=== PATIENT | male | born 1980 | race Caucasian/White ===

== ENCOUNTER 2017-04-21 02:43 | Emergency (ER) | payer MEDICAID ==
[~2017-04-21] VITALS: Ht 167.6 cm; Wt 65.5 kg
[~2017-04-21 02:43] MED LIST: ALPR-624 PO; ANAS1TAB10 PO; BENZ1LOZ30 TOP; CARI350T PO; CLIN-80 PO; CLON-527 PO; CLON-528 PO; ESCI10TA54 PO; HYDR-569 PO; LIDO35.4 TP; ONDA4TAB6 PO; OXCA150T PO; PRAZ2CAP2 PO; QUET50TA PO; SUMA100T16 PO; TEST200V10 IM; TRAM50TA2 PO; ZOLP5TAB8 PO
[2017-04-21 02:49] VITALS: BP 120/90
== END 2017-04-21 03:16 | disposition left against medical advice (07) ==
LOC: ER 02:44
DX: R05 Cough (principal); G43.909 Migraine, unspecified, not intractable, without status migrainosus; J45.909 Unspecified asthma, uncomplicated; K21.9 Gastro-esophageal reflux disease without esophagitis; G89.29 Other chronic pain; F12.10 Cannabis abuse, uncomplicated; F15.10 Other stimulant abuse, uncomplicated; F11.10 Opioid abuse, uncomplicated; F14.10 Cocaine abuse, uncomplicated; F17.210 Nicotine dependence, cigarettes, uncomplicated; Z90.49 Acquired absence of other specified parts of digestive tract; Z88.0 Allergy status to penicillin; Z76.5 Malingerer [conscious simulation]; Z79.899 Other long term (current) drug therapy; Z98.890 Other specified postprocedural states
CPT/HCPCS: 99281

== ENCOUNTER 2017-08-11 22:37 | Emergency (ER) | payer MEDICAID ==
[~2017-08-11] VITALS: Ht 165.1 cm; Wt 61.0 kg
[2017-08-11 22:45] VITALS: BP 127/87
== END 2017-08-11 22:59 | disposition home or self-care (01) ==
LOC: ER 22:37
DX: F41.0 Panic disorder [episodic paroxysmal anxiety] (principal); F31.9 Bipolar disorder, unspecified; G43.909 Migraine, unspecified, not intractable, without status migrainosus; J45.909 Unspecified asthma, uncomplicated; K21.9 Gastro-esophageal reflux disease without esophagitis; G89.29 Other chronic pain; F12.10 Cannabis abuse, uncomplicated; F15.10 Other stimulant abuse, uncomplicated; F14.10 Cocaine abuse, uncomplicated; F11.10 Opioid abuse, uncomplicated; Z86.19 Personal history of other infectious and parasitic diseases; Z86.14 Personal history of Methicillin resistant Staphylococcus aureus infection; Z88.0 Allergy status to penicillin; Z79.899 Other long term (current) drug therapy
CPT/HCPCS: 99284

== ENCOUNTER 2017-09-08 16:57 | Emergency (ER) | payer OTHER, MEDICAID ==
[~2017-09-08] VITALS: Ht 165.1 cm; Wt 68.0 kg
[~2017-09-08 16:57] MED LIST changes: -CLIN-80 PO; +CLIN300C85 PO
[2017-09-08 16:59] VITALS: BP 122/86
[2017-09-08] MEDS ORDERED: HYDROcodone/acetaminophen 10/325mg tab PO ONE (18:30)
[2017-09-08] MEDS ORDERED: HYDR-569 PO (19:53)
[2017-09-08] MEDS ORDERED: CYCL-1 PO (19:53)
[2017-09-08] MEDS ORDERED: ketorolac trometh inj. 60 MG/2 ML VIAL IM ONE (19:55)
[2017-09-08] MEDS ORDERED: ketorolac tromethamine 15mg/ml inj. IM ONE (20:00)
== END 2017-09-08 20:35 | disposition home or self-care (01) ==
LOC: ER 16:58
DX: M54.2 Cervicalgia (principal); M54.5 Low back pain; K21.9 Gastro-esophageal reflux disease without esophagitis; G89.29 Other chronic pain; J45.909 Unspecified asthma, uncomplicated; F12.90 Cannabis use, unspecified, uncomplicated; F15.90 Other stimulant use, unspecified, uncomplicated; F14.90 Cocaine use, unspecified, uncomplicated; F11.90 Opioid use, unspecified, uncomplicated; Z98.890 Other specified postprocedural states; Z88.0 Allergy status to penicillin; Z79.899 Other long term (current) drug therapy
CPT/HCPCS: 70450; 72125; 99284

== ENCOUNTER 2017-10-22 16:20 | Emergency (ER) | payer MEDICAID, OTHER ==
[~2017-10-22] VITALS: Ht 165.1 cm; Wt 66.8 kg
[~2017-10-22 16:20] MED LIST changes: +CYCL-1 PO
[2017-10-22 16:50] LABS: BASOPHILS % (AUTO) 0.3 % (0-1); EOSINOPHILS # (AUTO) 0.2 X10'3 (0-0.9); EOSINOPHILS % (AUTO) 2.8 % (0-6); HEMATOCRIT 49.5 % (42.0-52.0); HEMOGLOBIN 16.3 g/dl (14.0-17.9); LYMPHOCYTES # (AUTO) 2.3 X10'3 (1.1-4.8); MEAN CORPUSCULAR HEMOGLOBIN 29.6 PG (27.0-31.0); MEAN CORPUSCULAR HGB CONC 32.9 % (33.0-36.5); MEAN CORPUSCULAR VOLUME 90.1 FL (78-98); MEAN PLATELET VOLUME 8.1 FL (7.4-10.4); MONOCYTES # (AUTO) 0.4 X10'3 (0-0.9); MONOCYTES % (AUTO) 5.3 % (2-12); NEUTROPHILS # (AUTO) 5.2 X10'3 (1.8-7.7); NEUTROPHILS % (AUTO) 63.6 % (42-75); PLATELET COUNT 298 X10'3 (140-440); RED CELL DISTRIBUTION WIDTH 13.9 % (11.5-14.5); WHITE BLOOD COUNT 8.1 X10'3 (4.5-11.0)
[2017-10-22 17:07] LABS: ALANINE AMINOTRANSFERASE 26 U/L (12-78); ALBUMIN 3.5 G/DL (3.4-5.0); ALBUMIN/GLOBULIN RATIO 0.8 (1.1-1.5); ALKALINE PHOSPHATASE 131 IU/L (46-116); ANION GAP 7 (8-16); ASPARTATE AMINO TRANSFERASE 35 U/L (10-37); BILIRUBIN,TOTAL 0.3 MG/DL (0.1-1.0); BLOOD UREA NITROGEN 10 MG/DL (7-18); BUN/CREATININE RATIO 9.6 (5.4-32.0); CALCIUM 8.5 MG/DL (8.5-10.1); CHLORIDE 101 MMOL/L (99-107); CREATININE 1.04 MG/DL (0.60-1.10); GLUCOSE 87 MG/DL (70-104); SODIUM 138 MMOL/L (135-145); TOTAL CARBON DIOXIDE 30.3 MMOL/L (24-32); TOTAL PROTEIN 7.8 G/DL (6.4-8.2); eGFR 81 ML/MIN
[2017-10-22] MEDS ORDERED: ondansetron 4mg rapidly disintigrating tab PO ONE (17:35)
[2017-10-22 17:50] LABS: CLARITY,URINE SLIGHTLY CLOUDY (Clear); COLOR,URINE YELLOW (Yellow); GLUCOSE, URINE NEGATIVE (Neg); KETONES,URINE TRACE mg/dl (Neg); LEUKOCYTE ESTERASE ,URINE NEGATIVE (Neg); NITRITES, URINE NEGATIVE (Neg); OCCULT BLOOD,URINE NEGATIVE (Neg); PH,URINE 5.5 (4.8-8.0); PROTEIN,URINE NEGATIVE (Neg); UROBILINOGEN,URINE 0.2 E.U/dL (0.2-1.0)
[2017-10-22] MEDS ORDERED: ONDA4TAB9 SL (17:58)
[2017-10-22] MEDS ORDERED: POLY17PO10 PO (17:58)
[2017-10-22 17:59] LABS: UA COLLECTION TYPE VOIDED
[2017-10-22] MEDS ORDERED: methylnaltrexone br 12mg/0.6ml inj***SubQ only SQ ONE (18:00)
[2017-10-22 18:01] LABS: BACTERIA,URINE 2+ /HPF (Neg); MUCUS STRANDS MANY /LPF (Neg); RBC,URINE NONE SEEN /HPF (0-2); SQUAMOUS EPITHELIAL CELL,UR FEW /LPF (FEW)
[2017-10-22 18:03] LABS: TRANSITIONAL EPI CELLS,URINE FEW /HPF; WBC CLUMPS,URINE FEW /HPF (NEGATIVE)
[2017-10-22 18:21] VITALS: BP 128/65
== END 2017-10-22 18:22 | disposition home or self-care (01) ==
LOC: ER 16:22
DX: K59.03 Drug induced constipation (principal); T40.3X5A Adverse effect of methadone, initial encounter; G43.909 Migraine, unspecified, not intractable, without status migrainosus; K21.9 Gastro-esophageal reflux disease without esophagitis; F31.9 Bipolar disorder, unspecified; F12.90 Cannabis use, unspecified, uncomplicated; F15.90 Other stimulant use, unspecified, uncomplicated; F14.90 Cocaine use, unspecified, uncomplicated; F11.90 Opioid use, unspecified, uncomplicated; Z88.0 Allergy status to penicillin; Z79.899 Other long term (current) drug therapy; Z79.2 Long term (current) use of antibiotics; Z90.89 Acquired absence of other organs; Y92.89 Other specified places as the place of occurrence of the external cause
CPT/HCPCS: 36415; 74018; 80053; 81001; 85025; 85610; 87077; 87088; 87186; 93005; 96372; 99285; J2212

== ENCOUNTER 2018-02-05 14:37 | Inpatient (IN) | payer MEDICAID ==
[~2018-02-05] VITALS: Ht 170.2 cm; Wt 78.5 kg
[~2018-02-05 14:37] MED LIST changes: -ALPR-624 PO; -ANAS1TAB10 PO; -BENZ1LOZ30 TOP; -CARI350T PO; -CLIN300C85 PO; -CLON-528 PO; -CYCL-1 PO; -ESCI10TA54 PO; +GABA-534 PO; -HYDR-569 PO; -LIDO35.4 TP; +METH-603 PO; -ONDA4TAB6 PO; -OXCA150T PO; -PRAZ2CAP2 PO; -QUET50TA PO; -SUMA100T16 PO; -TEST200V10 IM; -TRAM50TA2 PO
[2018-02-05 20:00] VITALS: BP 109/64
[2018-02-05] MEDS: clonazePAM 1mg tablet PO SCH (21:07)
[2018-02-05] MEDS: zolpidem 5mg tablet PO PRN (21:54)
[2018-02-05] MEDS: acetaminophen 325mg tablet PO PRN (21:55)
[2018-02-06] MEDS: nicotine 21mg patch - 24 hr TD SCH (07:24)
[2018-02-06] MEDS: clonazePAM 1mg tablet PO SCH ×4 (07:25→20:00)
[2018-02-06] MEDS: gabapentin 400mg capsule PO SCH (07:25)
[2018-02-06] MEDS: methadone 5mg tablet PO SCH ×2 (07:25→21:08)
[2018-02-06] MEDS ORDERED: methadone 10mg tablet PO SCH (08:00)
[2018-02-06 08:23] VITALS: BP 107/71
[2018-02-06] MEDS ORDERED: clonazePAM 1mg tablet PO ONE (11:15)
[2018-02-06] MEDS ORDERED: methadone 5mg tablet PO ONE (11:30)
[2018-02-06] MEDS ORDERED: gabapentin 400mg capsule PO SCH (12:00)
[2018-02-06] MEDS ORDERED: dextroamphetam/amphetam ER cap 15 MG CAP.ER.24H PO SCH (12:00)
[2018-02-06] MEDS ORDERED: magnesium citrate 296ml oral solution PO ONE (12:00)
[2018-02-06] MEDS: docusate sod 100mg capsule PO SCH (20:00)
[2018-02-06 20:49] VITALS: BP 106/65
[2018-02-06] MEDS: zolpidem 5mg tablet PO PRN (21:07)
[2018-02-06] MEDS: ALPRAZolam 0.5mg tablet PO SCH (21:11)
[2018-02-07] MEDS: ALPRAZolam 0.5mg tablet PO SCH (07:20)
[2018-02-07] MEDS: methadone 10mg tablet PO SCH (07:22)
[2018-02-07] MEDS: docusate sod 100mg capsule PO SCH ×2 (08:00→20:11)
[2018-02-07] MEDS: nicotine 21mg patch - 24 hr TD SCH (08:46)
[2018-02-07] MEDS: duloxetine 20mg capsule.DR PO SCH (08:47)
[2018-02-07] MEDS: gabapentin 400mg capsule PO SCH (08:47)
[2018-02-07 08:54] VITALS: BP 111/66
[2018-02-07] MEDS ORDERED: dextroamphetamine/amphetamine 5mg tablet PO PRN ×3 (11:45→14:50)
[2018-02-07] MEDS ORDERED: dextroamphetamine/amphetamine 5mg tablet PO ONE (11:45)
[2018-02-07] MEDS: ALPRAZolam 0.5mg tablet PO PRN (12:20)
[2018-02-07] MEDS ORDERED: loperamide 2mg capsule PO ONE (13:45)
[2018-02-07] MEDS ORDERED: dextroamphetamine/amphetamine 10mg tablet PO PRN (14:27)
[2018-02-07 19:00] VITALS: BP 116/71
[2018-02-07] MEDS: zolpidem 5mg tablet PO PRN (20:24)
[2018-02-07 20:49] LABS: CLARITY,URINE CLEAR (Clear); COLOR,URINE YELLOW (Yellow); GLUCOSE, URINE NEGATIVE (Neg); KETONES,URINE NEGATIVE (Neg); LEUKOCYTE ESTERASE ,URINE NEGATIVE (Neg); NITRITES, URINE NEGATIVE (Neg); OCCULT BLOOD,URINE NEGATIVE (Neg); PROTEIN,URINE NEGATIVE (Neg); UA COLLECTION TYPE NON-SPECIFIED; UROBILINOGEN,URINE 0.2 E.U/dL (0.2-1.0)
[2018-02-08 08:00] VITALS: BP 112/72
[2018-02-08] MEDS ORDERED: dextroamphetamine/amphetamine 5mg tablet PO SCH (08:00)
[2018-02-08] MEDS: docusate sod 100mg capsule PO SCH ×2 (08:00→20:06)
[2018-02-08] MEDS ORDERED: ALPRAZolam 0.5mg tablet PO SCH (08:00)
[2018-02-08] MEDS: duloxetine 20mg capsule.DR PO SCH (08:01)
[2018-02-08] MEDS: methadone 10mg tablet PO SCH (08:01)
[2018-02-08] MEDS: gabapentin 400mg capsule PO SCH (08:01)
[2018-02-08] MEDS: nicotine 21mg patch - 24 hr TD SCH (08:07)
[2018-02-08] MEDS: ALPRAZolam 0.5mg tablet PO PRN ×2 (13:49→20:23)
[2018-02-08] MEDS ORDERED: chlorproMAZINE 25mg tablet PO PRN (15:25)
[2018-02-08 19:00] VITALS: BP 121/76
[2018-02-08] MEDS: lubiprostone 24mcg capsule PO SCH (20:05)
[2018-02-09] MEDS: dextroamphetamine/amphetamine 5mg tablet PO SCH (07:08)
[2018-02-09] MEDS: docusate sod 100mg capsule PO SCH ×2 (07:09→20:15)
[2018-02-09] MEDS: gabapentin 400mg capsule PO SCH (07:09)
[2018-02-09] MEDS: duloxetine 20mg capsule.DR PO SCH (07:09)
[2018-02-09] MEDS: lubiprostone 24mcg capsule PO SCH ×2 (07:10→20:15)
[2018-02-09] MEDS: methadone 10mg tablet PO SCH (07:12)
[2018-02-09] MEDS: nicotine 21mg patch - 24 hr TD SCH (07:14)
[2018-02-09 08:00] VITALS: BP 136/81
[2018-02-09] MEDS ORDERED: dextroamphetamine/amphetamine 5mg tablet PO PRN (08:00)
[2018-02-09] MEDS ORDERED: ALPRAZolam 0.5mg tablet PO PRN (08:00)
[2018-02-09] MEDS: ALPRAZolam 0.5mg tablet PO PRN ×2 (10:22→15:36)
[2018-02-09] MEDS ORDERED: ondansetron 4mg rapidly disintigrating tab PO PRN (11:30)
[2018-02-09 19:00] VITALS: BP 114/80
[2018-02-09] MEDS: benztropine 1mg tablet PO SCH (20:15)
[2018-02-09] MEDS ORDERED: chlorproMAZINE 25mg tablet PO SCH (21:00)
[2018-02-09] MEDS: ondansetron 4mg rapidly disintigrating tab PO PRN (21:22)
[2018-02-10] MEDS: chlorproMAZINE 25mg tablet PO SCH ×2 (00:55→21:09)
[2018-02-10 08:00] VITALS: BP 94/53
[2018-02-10] MEDS: lubiprostone 24mcg capsule PO SCH ×2 (08:08→20:23)
[2018-02-10] MEDS: methadone 10mg tablet PO SCH (08:08)
[2018-02-10] MEDS: docusate sod 100mg capsule PO SCH ×2 (08:08→20:23)
[2018-02-10] MEDS: duloxetine 20mg capsule.DR PO SCH (08:08)
[2018-02-10] MEDS: gabapentin 400mg capsule PO SCH (08:09)
[2018-02-10] MEDS: dextroamphetamine/amphetamine 5mg tablet PO SCH (08:09)
[2018-02-10] MEDS: nicotine 21mg patch - 24 hr TD SCH (08:14)
[2018-02-10] MEDS: ALPRAZolam 0.5mg tablet PO PRN ×2 (13:15→18:14)
[2018-02-10 19:55] VITALS: BP 125/79
[2018-02-10] MEDS: benztropine 1mg tablet PO SCH (21:10)
[2018-02-11] MEDS: benztropine 1mg tablet PO PRN (00:49)
[2018-02-11] MEDS: methadone 10mg tablet PO SCH (07:50)
[2018-02-11] MEDS: gabapentin 400mg capsule PO SCH (07:50)
[2018-02-11] MEDS: duloxetine 20mg capsule.DR PO SCH (07:50)
[2018-02-11] MEDS: docusate sod 100mg capsule PO SCH ×2 (07:50→21:11)
[2018-02-11] MEDS: lubiprostone 24mcg capsule PO SCH ×2 (07:50→21:11)
[2018-02-11] MEDS: dextroamphetamine/amphetamine 5mg tablet PO SCH (07:51)
[2018-02-11] MEDS: nicotine 21mg patch - 24 hr TD SCH (07:58)
[2018-02-11 08:00] VITALS: BP 105/66
[2018-02-11] MEDS: ALPRAZolam 0.5mg tablet PO PRN ×2 (12:28→18:45)
[2018-02-11] MEDS ORDERED: dextroamphetamine/amphetamine 5mg tablet PO PRN (19:50)
[2018-02-11 19:57] VITALS: BP 135/86
[2018-02-11] MEDS: benztropine 1mg tablet PO SCH (21:11)
[2018-02-11] MEDS: chlorproMAZINE 25mg tablet PO SCH (21:11)
[2018-02-12] MEDS: nicotine 21mg patch - 24 hr TD SCH (07:09)
[2018-02-12] MEDS: lubiprostone 24mcg capsule PO SCH ×2 (07:10→20:28)
[2018-02-12] MEDS: gabapentin 400mg capsule PO SCH (07:11)
[2018-02-12] MEDS: docusate sod 100mg capsule PO SCH ×2 (07:12→20:28)
[2018-02-12] MEDS: methadone 10mg tablet PO SCH (07:13)
[2018-02-12] MEDS: duloxetine 20mg capsule.DR PO SCH (07:21)
[2018-02-12 08:00] VITALS: BP 129/74
[2018-02-12] MEDS ORDERED: dextroamphetamine/amphetamine 5mg tablet PO SCH (08:00)
[2018-02-12] MEDS: ALPRAZolam 0.5mg tablet PO PRN ×2 (11:48→17:06)
[2018-02-12] MEDS ORDERED: olanzapine 10mg tablet PO PRN (17:55)
[2018-02-12] MEDS: acetaminophen 325mg tablet PO PRN (19:44)
[2018-02-12 20:00] VITALS: BP 112/75
[2018-02-12] MEDS ORDERED: olanzapine 10mg tablet PO SCH (21:00)
[2018-02-13 08:00] VITALS: BP 109/74
[2018-02-13] MEDS ORDERED: ALPRAZolam 0.5mg tablet PO PRN (08:00)
[2018-02-13] MEDS: lubiprostone 24mcg capsule PO SCH ×2 (08:10→20:08)
[2018-02-13] MEDS: docusate sod 100mg capsule PO SCH ×2 (08:10→20:08)
[2018-02-13] MEDS: gabapentin 400mg capsule PO SCH (08:11)
[2018-02-13] MEDS: duloxetine 20mg capsule.DR PO SCH (08:11)
[2018-02-13] MEDS: dextroamphetamine/amphetamine 5mg tablet PO SCH (08:11)
[2018-02-13] MEDS: methadone 10mg tablet PO SCH (08:14)
[2018-02-13] MEDS: nicotine 21mg patch - 24 hr TD SCH (08:20)
[2018-02-13] MEDS ORDERED: ALPRAZolam 0.5mg tablet PO ONE (17:15)
[2018-02-13] MEDS ORDERED: magnesium hydroxide 30ml (MOM) UD suspension PO PRN (19:40)
[2018-02-13] MEDS: OLANZapine 5mg rapidly disint. tablet PO SCH (20:09)
[2018-02-13 20:15] VITALS: BP 111/75
[2018-02-14] MEDS: OLANZapine 5mg rapidly disint. tablet PO PRN (00:12)
[2018-02-14 08:22] VITALS: BP 119/79
[2018-02-14] MEDS: lubiprostone 24mcg capsule PO SCH ×2 (08:25→20:31)
[2018-02-14] MEDS: docusate sod 100mg capsule PO SCH ×2 (08:25→20:31)
[2018-02-14] MEDS: dextroamphetamine/amphetamine 5mg tablet PO SCH (08:25)
[2018-02-14] MEDS: duloxetine 20mg capsule.DR PO SCH (08:25)
[2018-02-14] MEDS: nicotine 21mg patch - 24 hr TD SCH (08:25)
[2018-02-14] MEDS: gabapentin 400mg capsule PO SCH (08:26)
[2018-02-14] MEDS: methadone 10mg tablet PO SCH (08:31)
[2018-02-14] MEDS ORDERED: magnesium citrate 296ml oral solution PO ONE ×2 (09:35→20:00)
[2018-02-14] MEDS: ALPRAZolam 0.5mg tablet PO PRN ×2 (12:17→16:49)
[2018-02-14 19:00] VITALS: BP 138/85
[2018-02-14] MEDS: OLANZapine 5mg rapidly disint. tablet PO SCH (20:31)
[2018-02-15 08:00] VITALS: BP 110/79
[2018-02-15] MEDS: nicotine 21mg patch - 24 hr TD SCH (08:00)
[2018-02-15] MEDS: lubiprostone 24mcg capsule PO SCH ×2 (08:12→20:09)
[2018-02-15] MEDS: gabapentin 400mg capsule PO SCH (08:13)
[2018-02-15] MEDS: dextroamphetamine/amphetamine 5mg tablet PO SCH (08:13)
[2018-02-15] MEDS: docusate sod 100mg capsule PO SCH ×2 (08:13→20:09)
[2018-02-15] MEDS: duloxetine 20mg capsule.DR PO SCH (08:13)
[2018-02-15] MEDS: methadone 10mg tablet PO SCH (08:18)
[2018-02-15] MEDS ORDERED: TESTOSTERONE CYPIONATE 200 MG/ML VIAL IM ONE (10:00)
[2018-02-15] MEDS: ALPRAZolam 0.5mg tablet PO PRN ×2 (12:45→17:03)
[2018-02-15 19:00] VITALS: BP 136/89
[2018-02-15] MEDS: OLANZapine 5mg rapidly disint. tablet PO SCH (20:08)
[2018-02-15] MEDS: divalproex sod 125mg tablet.DR PO SCH (20:09)
[2018-02-15] MEDS: benztropine 1mg tablet PO PRN (20:58)
[2018-02-15] MEDS ORDERED: SUMAtriptan 25 MG tablet PO ONE (22:35)
[2018-02-16] MEDS: dextroamphetamine/amphetamine 5mg tablet PO SCH (07:43)
[2018-02-16] MEDS: docusate sod 100mg capsule PO SCH ×2 (07:43→20:28)
[2018-02-16] MEDS: methadone 10mg tablet PO SCH (07:43)
[2018-02-16] MEDS: duloxetine 20mg capsule.DR PO SCH (07:43)
[2018-02-16] MEDS: gabapentin 400mg capsule PO SCH (07:43)
[2018-02-16] MEDS: divalproex sod 125mg tablet.DR PO SCH (07:44)
[2018-02-16] MEDS: nicotine 21mg patch - 24 hr TD SCH (07:49)
[2018-02-16 08:00] VITALS: BP 137/89
[2018-02-16] MEDS: lubiprostone 24mcg capsule PO SCH ×2 (08:21→20:28)
[2018-02-16] MEDS: acetaminophen 325mg tablet PO PRN (10:46)
[2018-02-16] MEDS: ALPRAZolam 0.5mg tablet PO PRN ×2 (10:47→16:12)
[2018-02-16 19:00] VITALS: BP 125/90
[2018-02-16 19:47] LABS: COLOR,URINE YELLOW (Yellow); GLUCOSE, URINE NEGATIVE (Neg); KETONES,URINE NEGATIVE (Neg); LEUKOCYTE ESTERASE ,URINE NEGATIVE (Neg); NITRITES, URINE NEGATIVE (Neg); OCCULT BLOOD,URINE NEGATIVE (Neg); PROTEIN,URINE NEGATIVE (Neg); UROBILINOGEN,URINE 0.2 E.U/dL (0.2-1.0)
[2018-02-16 19:52] LABS: CLARITY,URINE SLIGHTLY CLOUDY (Clear); UA COLLECTION TYPE NON-SPECIFIED
[2018-02-16 20:00] LABS: BACTERIA,URINE NONE SEEN /HPF (Neg); MUCUS STRANDS FEW /LPF (Neg); RBC,URINE NONE SEEN /HPF (0-2); SQUAMOUS EPITHELIAL CELL,UR FEW /LPF (FEW); WBC,URINE 0-4 /HPF (0-4)
[2018-02-16 20:01] LABS: AMORPHOUS PHOSPHATES 1+
[2018-02-16] MEDS: OLANZapine 5mg rapidly disint. tablet PO SCH (20:28)
[2018-02-16] MEDS: divalproex sodium 250mg tablet PO SCH (21:04)
[2018-02-16] MEDS: ondansetron 4mg rapidly disintigrating tab PO PRN (21:34)
[2018-02-17] MEDS: OLANZapine 5mg rapidly disint. tablet PO PRN (03:37)
[2018-02-17] MEDS: methadone 10mg tablet PO SCH (07:36)
[2018-02-17] MEDS: docusate sod 100mg capsule PO SCH ×2 (07:41→20:02)
[2018-02-17] MEDS: divalproex sod 125mg tablet.DR PO SCH (07:45)
[2018-02-17] MEDS: dextroamphetamine/amphetamine 5mg tablet PO SCH (07:46)
[2018-02-17] MEDS: gabapentin 400mg capsule PO SCH (07:46)
[2018-02-17] MEDS: duloxetine 20mg capsule.DR PO SCH (07:47)
[2018-02-17] MEDS: lubiprostone 24mcg capsule PO SCH ×2 (07:47→20:02)
[2018-02-17] MEDS: nicotine 21mg patch - 24 hr TD SCH (07:48)
[2018-02-17 08:00] VITALS: BP 107/56
[2018-02-17] MEDS: ALPRAZolam 0.5mg tablet PO PRN ×2 (13:31→20:04)
[2018-02-17 19:00] VITALS: BP 126/86
[2018-02-17] MEDS: divalproex sodium 250mg tablet PO SCH (20:03)
[2018-02-17] MEDS: OLANZapine 5mg rapidly disint. tablet PO SCH ×2 (20:03→21:00)
[2018-02-18] MEDS: ALPRAZolam 0.5mg tablet PO PRN ×2 (03:26→11:00)
[2018-02-18 07:42] VITALS: BP 94/67
[2018-02-18] MEDS: nicotine 21mg patch - 24 hr TD SCH (08:00)
[2018-02-18] MEDS: divalproex sod 125mg tablet.DR PO SCH (08:22)
[2018-02-18] MEDS: dextroamphetamine/amphetamine 5mg tablet PO SCH (08:22)
[2018-02-18] MEDS: duloxetine 20mg capsule.DR PO SCH (08:23)
[2018-02-18] MEDS: methadone 10mg tablet PO SCH (08:29)
[2018-02-18] MEDS: docusate sod 100mg capsule PO SCH ×2 (08:29→20:14)
[2018-02-18] MEDS: gabapentin 400mg capsule PO SCH (08:29)
[2018-02-18] MEDS: lubiprostone 24mcg capsule PO SCH ×2 (08:35→20:14)
[2018-02-18 19:57] VITALS: BP 123/76
[2018-02-18] MEDS: divalproex sodium 250mg tablet PO SCH (20:15)
[2018-02-18] MEDS: ibuprofen 200mg tablet PO PRN (20:15)
[2018-02-18] MEDS: OLANZapine 5mg rapidly disint. tablet PO SCH (20:16)
[2018-02-19] MEDS: ALPRAZolam 0.5mg tablet PO PRN ×3 (01:43→20:10)
[2018-02-19] MEDS ORDERED: traZODone 50mg tablet PO ONE (04:15)
[2018-02-19] MEDS ORDERED: zolpidem 5mg tablet PO ONE (04:15)
[2018-02-19] MEDS ORDERED: ALPRAZolam 0.25mg tablet PO PRN (06:36)
[2018-02-19] MEDS: methadone 10mg tablet PO SCH (07:04)
[2018-02-19] MEDS: docusate sod 100mg capsule PO SCH ×2 (07:04→20:11)
[2018-02-19] MEDS: gabapentin 400mg capsule PO SCH (07:04)
[2018-02-19] MEDS: divalproex sod 125mg tablet.DR PO SCH (07:05)
[2018-02-19] MEDS: benztropine 1mg tablet PO PRN (07:05)
[2018-02-19] MEDS: dextroamphetamine/amphetamine 5mg tablet PO SCH (07:05)
[2018-02-19] MEDS: lubiprostone 24mcg capsule PO SCH ×2 (07:05→20:11)
[2018-02-19] MEDS: duloxetine 20mg capsule.DR PO SCH (07:06)
[2018-02-19 08:00] VITALS: BP 102/86
[2018-02-19] MEDS: nicotine 21mg patch - 24 hr TD SCH (08:00)
[2018-02-19] MEDS: ondansetron 4mg rapidly disintigrating tab PO PRN (14:39)
[2018-02-19 19:00] VITALS: BP 136/86
[2018-02-19] MEDS ORDERED: OLANZapine 5mg rapidly disint. tablet PO PRN (19:55)
[2018-02-19] MEDS: divalproex sodium 250mg tablet PO SCH (20:11)
[2018-02-19] MEDS: OLANZapine 2.5MG tablet PO SCH (20:11)
[2018-02-19] MEDS ORDERED: OLANZapine 2.5MG tablet PO SCH (21:00)
[2018-02-20 07:25] VITALS: BP 112/78
[2018-02-20] MEDS: nicotine 21mg patch - 24 hr TD SCH ×2 (08:00→08:17)
[2018-02-20] MEDS: ALPRAZolam 0.5mg tablet PO PRN ×2 (08:01→14:23)
[2018-02-20] MEDS: duloxetine 20mg capsule.DR PO SCH (08:02)
[2018-02-20] MEDS: docusate sod 100mg capsule PO SCH ×2 (08:02→20:35)
[2018-02-20] MEDS: methadone 5mg tablet PO SCH (08:02)
[2018-02-20] MEDS: gabapentin 400mg capsule PO SCH (08:02)
[2018-02-20] MEDS: methadone 10mg tablet PO SCH (08:02)
[2018-02-20] MEDS: divalproex sod 125mg tablet.DR PO SCH (08:03)
[2018-02-20] MEDS: lubiprostone 24mcg capsule PO SCH ×2 (08:04→20:34)
[2018-02-20] MEDS: dextroamphetamine/amphetamine 5mg tablet PO SCH (08:04)
[2018-02-20] MEDS: ibuprofen 200mg tablet PO PRN (12:25)
[2018-02-20 20:00] VITALS: BP 138/78
[2018-02-20] MEDS: divalproex sodium 250mg tablet PO SCH (20:34)
[2018-02-20] MEDS: OLANZapine 2.5MG tablet PO SCH (20:35)
[2018-02-21 08:00] VITALS: BP 122/70
[2018-02-21] MEDS: duloxetine 20mg capsule.DR PO SCH (08:03)
[2018-02-21] MEDS: lubiprostone 24mcg capsule PO SCH ×2 (08:03→20:28)
[2018-02-21] MEDS: methadone 10mg tablet PO SCH (08:03)
[2018-02-21] MEDS: docusate sod 100mg capsule PO SCH ×2 (08:03→20:27)
[2018-02-21] MEDS: nicotine 21mg patch - 24 hr TD SCH (08:04)
[2018-02-21] MEDS: divalproex sod 125mg tablet.DR PO SCH (08:04)
[2018-02-21] MEDS: dextroamphetamine/amphetamine 5mg tablet PO SCH (08:04)
[2018-02-21] MEDS: methadone 5mg tablet PO SCH (08:04)
[2018-02-21] MEDS: gabapentin 400mg capsule PO SCH (08:04)
[2018-02-21] MEDS: ALPRAZolam 0.5mg tablet PO PRN ×2 (10:45→14:56)
[2018-02-21] MEDS ORDERED: ALPR2TAB75 PO (19:33)
[2018-02-21] MEDS ORDERED: CARI-1 PO (19:33)
[2018-02-21] MEDS ORDERED: MAGN296S50 PO (19:33)
[2018-02-21] MEDS ORDERED: DIVA-52 PO (19:33)
[2018-02-21] MEDS ORDERED: NICO-687 TD (19:33)
[2018-02-21] MEDS ORDERED: DEXT10TA8 PO (19:33)
[2018-02-21] MEDS ORDERED: METH5TAB PO (19:33)
[2018-02-21] MEDS ORDERED: OLAN5TAB26 PO (19:33)
[2018-02-21] MEDS ORDERED: DOL10T PO (19:33)
[2018-02-21] MEDS ORDERED: DIVA-74 PO (19:33)
[2018-02-21 20:00] VITALS: BP 136/70
[2018-02-21] MEDS ORDERED: OLANZapine 2.5MG tablet PO SCH (20:00)
[2018-02-21] MEDS ORDERED: DULO20CA17 PO (20:26)
[2018-02-21] MEDS: divalproex sodium 250mg tablet PO SCH (20:29)
[2018-02-22] MEDS ORDERED: METH-603 PO (12:27)
[2018-02-22] MEDS ORDERED: AMPH10CA3 PO (12:27)
[2018-02-22] MEDS ORDERED: TESTOSTERONE CYPIONATE 200 MG/ML VIAL IM ONE ×2 (15:00)
== END 2018-02-21 22:00 | disposition left against medical advice (07) | DRG 751 ==
LOC: ADULT MH 14:37
PROVIDERS: ADMIT Psychiatry & Neurology Psychiatry; ATTEND Psychiatry & Neurology Psychiatry
DX: F33.2 Major depressive disorder, recurrent severe without psychotic features (principal); F11.20 Opioid dependence, uncomplicated; R45.851 Suicidal ideations; F15.10 Other stimulant abuse, uncomplicated; M50.30 Other cervical disc degeneration, unspecified cervical region; F19.94 Other psychoactive substance use, unspecified with psychoactive substance-induced mood disorder; F60.89 Other specific personality disorders; F17.210 Nicotine dependence, cigarettes, uncomplicated; Z53.21 Procedure and treatment not carried out due to patient leaving prior to being seen by health care provider; G43.909 Migraine, unspecified, not intractable, without status migrainosus; F12.10 Cannabis abuse, uncomplicated; F64.0 Transsexualism; F90.1 Attention-deficit hyperactivity disorder, predominantly hyperactive type; G89.29 Other chronic pain; Z88.0 Allergy status to penicillin; Z90.49 Acquired absence of other specified parts of digestive tract; Z79.899 Other long term (current) drug therapy; Z28.21 Immunization not carried out because of patient refusal; Z88.5 Allergy status to narcotic agent; Z81.8 Family history of other mental and behavioral disorders; Z71.6 Tobacco abuse counseling; Z71.51 Drug abuse counseling and surveillance of drug abuser
CPT/HCPCS: 81001; 81003; 87070; J3490; Q0161; Q2037; X5620

== ENCOUNTER 2018-05-16 15:40 | Emergency (ER) | payer MEDICAID ==
[~2018-05-16] VITALS: Ht 162.6 cm; Wt 72.0 kg
[~2018-05-16 15:40] MED LIST changes: +AMPH10CA3 PO; +CARI-1 PO; -CLON-527 PO; +DIVA-52 PO; +DIVA-74 PO; +DULO20CA17 PO; -GABA-534 PO; +MAGN296S50 PO; -METH-603 PO; +NICO-687 TD; +OLAN5TAB26 PO; -ZOLP5TAB8 PO
[2018-05-16 16:17] VITALS: BP 147/94
[2018-05-16 16:55] LABS: BASOPHILS % (AUTO) 0.1 % (0-1); EOSINOPHILS # (AUTO) 0.3 X10'3 (0-0.9); EOSINOPHILS % (AUTO) 2.5 % (0-6); HEMATOCRIT 53.7 % (42.0-52.0); HEMOGLOBIN 17.9 g/dl (14.0-17.9); LYMPHOCYTES # (AUTO) 1.6 X10'3 (1.1-4.8); LYMPHOCYTES % (AUTO) 14.8 % (21-51); MEAN CORPUSCULAR HEMOGLOBIN 29.7 PG (27.0-31.0); MEAN CORPUSCULAR HGB CONC 33.3 g/dL (33.0-36.5); MEAN CORPUSCULAR VOLUME 89.3 FL (78-98); MEAN PLATELET VOLUME 7.3 FL (7.4-10.4); MONOCYTES % (AUTO) 8.8 % (2-12); NEUTROPHILS # (AUTO) 8.2 X10'3 (1.8-7.7); NEUTROPHILS % (AUTO) 73.8 % (42-75); PLATELET COUNT 363 X10'3 (140-440); RED BLOOD COUNT 6.02 X10'6 (4.70-6.10); RED CELL DISTRIBUTION WIDTH 13.3 % (11.5-14.5); WHITE BLOOD COUNT 11.1 X10'3 (4.5-11.0)
[2018-05-16 17:06] LABS: INR 1.1 INR; PROTHROMBIN TIME 10.7 SECONDS (9.0-12.0)
[2018-05-16 17:10] LABS: ALANINE AMINOTRANSFERASE 28 U/L (12-78); ALBUMIN 4.5 G/DL (3.4-5.0); ALKALINE PHOSPHATASE 95 IU/L (46-116); ANION GAP 11 (8-16); ASPARTATE AMINO TRANSFERASE 54 U/L (10-37); BILIRUBIN,TOTAL 0.9 MG/DL (0.1-1.0); BLOOD UREA NITROGEN 22 MG/DL (7-18); BUN/CREATININE RATIO 17.9 (5.4-32.0); CALCIUM 9.5 MG/DL (8.5-10.1); CHLORIDE 99 MMOL/L (99-107); CREATININE 1.23 MG/DL (0.60-1.10); GLUCOSE 71 MG/DL (70-104); POTASSIUM 4.1 MMOL/L (3.5-5.1); SODIUM 138 MMOL/L (135-145); TOTAL CARBON DIOXIDE 28.3 MMOL/L (24-32); TOTAL PROTEIN 9.2 G/DL (6.4-8.2); eGFR 67 ML/MIN
[2018-05-16 17:16] LABS: CLARITY,URINE CLOUDY (Clear); COLOR,URINE YELLOW (Yellow); GLUCOSE, URINE NEGATIVE (Neg); KETONES,URINE TRACE mg/dl (Neg); LEUKOCYTE ESTERASE ,URINE SMALL (Neg); NITRITES, URINE POSITIVE (Neg); OCCULT BLOOD,URINE NEGATIVE (Neg); PH,URINE 5.5 (4.8-8.0); PROTEIN,URINE TRACE mg/dl (Neg); UROBILINOGEN,URINE 0.2 E.U/dL (0.2-1.0)
[2018-05-16 17:28] LABS: UA COLLECTION TYPE NON-SPECIFIED
[2018-05-16 17:29] LABS: BACTERIA,URINE 2+ /HPF (Neg); MUCUS STRANDS MODERATE /LPF (Neg); SQUAMOUS EPITHELIAL CELL,UR MODERATE /LPF (FEW)
[2018-05-16 17:30] LABS: RBC,URINE 0-2 /HPF (0-2); WBC,URINE 30-50 /HPF (0-4)
[2018-05-16] MEDS ORDERED: ciprofloxacin 250mg tablet PO ONE (20:30)
[2018-05-16] MEDS ORDERED: CIPR-230 PO (20:32)
[2018-05-16] MEDS ORDERED: LORazepam 1 MG tablet PO ONE (20:35)
== END 2018-05-16 20:49 | disposition home or self-care (01) ==
LOC: ER 15:40
DX: N39.0 Urinary tract infection, site not specified (principal); J45.909 Unspecified asthma, uncomplicated; K21.9 Gastro-esophageal reflux disease without esophagitis; G89.29 Other chronic pain; F12.90 Cannabis use, unspecified, uncomplicated; F14.90 Cocaine use, unspecified, uncomplicated; F11.90 Opioid use, unspecified, uncomplicated; Z86.19 Personal history of other infectious and parasitic diseases; Z86.14 Personal history of Methicillin resistant Staphylococcus aureus infection; Z90.49 Acquired absence of other specified parts of digestive tract; Z98.890 Other specified postprocedural states; Z88.0 Allergy status to penicillin; Z79.2 Long term (current) use of antibiotics; Z79.899 Other long term (current) drug therapy
CPT/HCPCS: 36415; 80053; 81001; 85025; 85610; 87077; 87088; 87186; 99283

== ENCOUNTER 2019-01-27 12:30 | Emergency (ER) | payer MEDICAID ==
[~2019-01-27] VITALS: Ht 165.1 cm; Wt 79.9 kg
[~2019-01-27 12:30] MED LIST changes: +BISA-155 PO; -CARI-1 PO; +CARI-433 PO; -DULO20CA17 PO; +DULO20CA18 PO
[2019-01-27] MEDS ORDERED: ketorolac trometh. 30mg/ml inj. IM ONE ×2 (12:35→14:05)
[2019-01-27] MEDS ORDERED: orphenadrine citrate 60mg/2ml inj. IM ONE (14:10)
[2019-01-27] MEDS ORDERED: ORPH100T2 PO (14:17)
[2019-01-27] MEDS ORDERED: KETO10TA2 PO (14:17)
[2019-01-27 14:34] VITALS: BP 158/71
== END 2019-01-27 14:37 | disposition home or self-care (01) ==
LOC: ER 12:30
DX: S16.1XXA Strain of muscle, fascia and tendon at neck level, initial encounter (principal); S29.019A Strain of muscle and tendon of unspecified wall of thorax, initial encounter; S39.012A Strain of muscle, fascia and tendon of lower back, initial encounter; M25.512 Pain in left shoulder; M25.511 Pain in right shoulder; G43.909 Migraine, unspecified, not intractable, without status migrainosus; J45.909 Unspecified asthma, uncomplicated; K21.9 Gastro-esophageal reflux disease without esophagitis; G89.29 Other chronic pain; F41.9 Anxiety disorder, unspecified; F31.9 Bipolar disorder, unspecified; F12.90 Cannabis use, unspecified, uncomplicated; F15.90 Other stimulant use, unspecified, uncomplicated; F11.90 Opioid use, unspecified, uncomplicated; F14.90 Cocaine use, unspecified, uncomplicated; Z86.19 Personal history of other infectious and parasitic diseases; Z90.49 Acquired absence of other specified parts of digestive tract; Z98.890 Other specified postprocedural states; Z88.0 Allergy status to penicillin; Z79.899 Other long term (current) drug therapy; V89.2XXA Person injured in unspecified motor-vehicle accident, traffic, initial encounter; Y93.89 Activity, other specified; Y92.488 Other paved roadways as the place of occurrence of the external cause; Y99.8 Other external cause status
CPT/HCPCS: 96372; 99283; J1885; J2360

== ENCOUNTER 2019-07-18 08:22 | Emergency (ER) | payer MEDICAID ==
[~2019-07-18] VITALS: Ht 167.6 cm; Wt 79.5 kg
[~2019-07-18 08:22] MED LIST changes: +KETO10TA2 PO; -MAGN296S50 PO; +MAGN296S70 PO; +ORPH100T2 PO
[2019-07-18 08:24] VITALS: BP 155/91
== END 2019-07-18 10:08 | disposition home or self-care (01) ==
LOC: ER 08:22
DX: R07.89 Other chest pain (principal); B34.9 Viral infection, unspecified; R51 Headache; K21.9 Gastro-esophageal reflux disease without esophagitis; G89.29 Other chronic pain; J45.909 Unspecified asthma, uncomplicated; F41.9 Anxiety disorder, unspecified; F32.9 Major depressive disorder, single episode, unspecified; Z86.14 Personal history of Methicillin resistant Staphylococcus aureus infection; Z87.440 Personal history of urinary (tract) infections; Z90.89 Acquired absence of other organs; Z88.0 Allergy status to penicillin
CPT/HCPCS: 71045; 99283

== ENCOUNTER 2019-11-19 09:02 | Emergency (ER) | payer MEDICAID ==
[~2019-11-19] VITALS: Ht 170.2 cm; Wt 73.6 kg
[2019-11-19] MEDS ORDERED: LORA-269 PO (09:17)
[2019-11-19] MEDS ORDERED: LORazepam 1 MG tablet PO ONE (09:20)
[2019-11-19 09:28] VITALS: BP 140/96
== END 2019-11-19 09:29 | disposition home or self-care (01) ==
LOC: ER 09:02
DX: F41.9 Anxiety disorder, unspecified (principal); F51.5 Nightmare disorder; G43.909 Migraine, unspecified, not intractable, without status migrainosus; K21.9 Gastro-esophageal reflux disease without esophagitis; J45.909 Unspecified asthma, uncomplicated; G89.29 Other chronic pain; F12.90 Cannabis use, unspecified, uncomplicated; F15.90 Other stimulant use, unspecified, uncomplicated; F14.90 Cocaine use, unspecified, uncomplicated; F11.90 Opioid use, unspecified, uncomplicated; Z86.19 Personal history of other infectious and parasitic diseases; Z90.49 Acquired absence of other specified parts of digestive tract; Z98.890 Other specified postprocedural states; Z88.0 Allergy status to penicillin; Z79.899 Other long term (current) drug therapy
CPT/HCPCS: 99283

== ENCOUNTER 2019-12-02 08:05 | Emergency (ER) | payer MEDICAID ==
[~2019-12-02] VITALS: Ht 167.6 cm; Wt 68.2 kg
[~2019-12-02 08:05] MED LIST changes: +LORA-269 PO
[2019-12-02 08:09] VITALS: BP 124/81
--- NOTE | 2019-12-02 08:34 | NUR ---
PT C/O HEAVINESS IN CHEST ,DIFFICULITY BREATHING ,TEARFUL.DENIES ANY SI.PT SAID HE FEEL BETTER WHILE TALKING.PT SAID I DO NOT WANT TO WORK TODAY WANT TO REST.
--- NOTE | 2019-12-02 09:19 | NUR ---
josé green at bedside talking with the pt.
[2019-12-02] MEDS ORDERED: ALPR1TAB2 PO (09:34)
== END 2019-12-02 09:53 | disposition home or self-care (01) ==
LOC: ER 08:05
DX: F41.9 Anxiety disorder, unspecified (principal); K59.00 Constipation, unspecified; R10.84 Generalized abdominal pain; G43.909 Migraine, unspecified, not intractable, without status migrainosus; J45.909 Unspecified asthma, uncomplicated; G89.29 Other chronic pain; F31.9 Bipolar disorder, unspecified; F12.90 Cannabis use, unspecified, uncomplicated; F15.90 Other stimulant use, unspecified, uncomplicated; F14.90 Cocaine use, unspecified, uncomplicated; F11.90 Opioid use, unspecified, uncomplicated; Z87.440 Personal history of urinary (tract) infections; Z86.19 Personal history of other infectious and parasitic diseases; Z86.14 Personal history of Methicillin resistant Staphylococcus aureus infection; Z98.890 Other specified postprocedural states; Z90.89 Acquired absence of other organs; Z72.89 Other problems related to lifestyle; Z88.0 Allergy status to penicillin; Z79.899 Other long term (current) drug therapy
CPT/HCPCS: 99283

== ENCOUNTER 2020-05-19 18:15 | Emergency (ER) | payer MEDICAID ==
[~2020-05-19] VITALS: Ht 165.1 cm; Wt 72.7 kg
[~2020-05-19 18:15] MED LIST changes: +ALPR1TAB2 PO
[2020-05-19 18:48] VITALS: BP 157/93
[2020-05-19] MEDS ORDERED: PALI3TAB PO (19:14)
[2020-05-19] MEDS ORDERED: CLON-527 PO (19:14)
[2020-05-19] MEDS ORDERED: OLAN5TAB3 PO (19:14)
== END 2020-05-19 19:38 | disposition home or self-care (01) ==
LOC: ER 18:16
DX: Z76.0 Encounter for issue of repeat prescription (principal); G43.909 Migraine, unspecified, not intractable, without status migrainosus; J45.909 Unspecified asthma, uncomplicated; K21.9 Gastro-esophageal reflux disease without esophagitis; G89.29 Other chronic pain; F41.9 Anxiety disorder, unspecified; F31.9 Bipolar disorder, unspecified; F12.90 Cannabis use, unspecified, uncomplicated; F15.90 Other stimulant use, unspecified, uncomplicated; F11.90 Opioid use, unspecified, uncomplicated; F14.90 Cocaine use, unspecified, uncomplicated; Z86.19 Personal history of other infectious and parasitic diseases; Z87.440 Personal history of urinary (tract) infections; Z86.14 Personal history of Methicillin resistant Staphylococcus aureus infection; Z90.89 Acquired absence of other organs; Z98.890 Other specified postprocedural states; Z72.89 Other problems related to lifestyle; Z88.0 Allergy status to penicillin; Z79.899 Other long term (current) drug therapy
CPT/HCPCS: 99283

== ENCOUNTER 2020-08-27 18:12 | Emergency (ER) | payer MEDICAID ==
[~2020-08-27] VITALS: Ht 167.6 cm; Wt 77.3 kg
[~2020-08-27 18:12] MED LIST changes: +CLON-527 PO; +OLAN5TAB3 PO; +PALI3TAB PO
[2020-08-27 18:14] VITALS: BP 138/118
[2020-08-27] MEDS ORDERED: IBUP-1984 PO (21:15)
[2020-08-27] MEDS ORDERED: ketorolac trometh. 30mg/ml inj. IM ONE (21:20)
== END 2020-08-27 21:38 | disposition home or self-care (01) ==
LOC: ER 18:13
DX: M25.561 Pain in right knee (principal); G43.909 Migraine, unspecified, not intractable, without status migrainosus; J45.909 Unspecified asthma, uncomplicated; K21.9 Gastro-esophageal reflux disease without esophagitis; G89.29 Other chronic pain; F41.9 Anxiety disorder, unspecified; F31.9 Bipolar disorder, unspecified; F12.90 Cannabis use, unspecified, uncomplicated; F15.90 Other stimulant use, unspecified, uncomplicated; F14.90 Cocaine use, unspecified, uncomplicated; F11.90 Opioid use, unspecified, uncomplicated; Z87.440 Personal history of urinary (tract) infections; Z86.14 Personal history of Methicillin resistant Staphylococcus aureus infection; Z90.89 Acquired absence of other organs; Z98.890 Other specified postprocedural states; Z72.89 Other problems related to lifestyle; Z88.0 Allergy status to penicillin; Z79.899 Other long term (current) drug therapy
CPT/HCPCS: 29505; 73564; 96372; 99283; J1885

== ENCOUNTER 2020-09-16 07:33 | Emergency (ER) | payer MEDICAID ==
[2020-09-16 07:40] VITALS: BP 133/95
[2020-09-16] MEDS ORDERED: ALPRAZolam 0.5mg tablet PO ONE (08:40)
[2020-09-16] MEDS ORDERED: QUET25TA PO (09:44)
[2020-09-16] MEDS ORDERED: BUSP5TAB3 PO (09:44)
== END 2020-09-16 10:04 | disposition home or self-care (01) ==
LOC: ER 07:33
DX: F41.9 Anxiety disorder, unspecified (principal); R11.0 Nausea; G43.909 Migraine, unspecified, not intractable, without status migrainosus; J45.909 Unspecified asthma, uncomplicated; K21.9 Gastro-esophageal reflux disease without esophagitis; G89.29 Other chronic pain; F31.9 Bipolar disorder, unspecified; F12.90 Cannabis use, unspecified, uncomplicated; F15.90 Other stimulant use, unspecified, uncomplicated; F14.90 Cocaine use, unspecified, uncomplicated; F11.90 Opioid use, unspecified, uncomplicated; Z86.19 Personal history of other infectious and parasitic diseases; Z87.440 Personal history of urinary (tract) infections; Z86.14 Personal history of Methicillin resistant Staphylococcus aureus infection; Z90.89 Acquired absence of other organs; Z98.890 Other specified postprocedural states; Z72.89 Other problems related to lifestyle; Z88.0 Allergy status to penicillin; Z79.899 Other long term (current) drug therapy
CPT/HCPCS: 99283

== ENCOUNTER 2021-04-27 07:52 | Emergency (ER) | payer MEDICAID ==
[~2021-04-27] VITALS: Ht 167.6 cm; Wt 90.9 kg
[~2021-04-27 07:52] MED LIST changes: -OLAN5TAB26 PO; +OLAN5TAB75 PO; +QUET25TA PO
[2021-04-27 08:13] VITALS: BP 168/103
[2021-04-27] MEDS ORDERED: acetaminophen 325mg tablet PO ONE (08:20)
[2021-04-27] MEDS ORDERED: ketorolac tromethamine 15mg/ml inj. IM ONE (08:40)
[2021-04-27 08:48] LABS: BASOPHILS % (AUTO) 0.3 % (0-1); EOSINOPHILS # (AUTO) 0.3 X10'3 (0-0.9); EOSINOPHILS % (AUTO) 2.6 % (0-6); HEMATOCRIT 45.5 % (42.0-52.0); HEMOGLOBIN 15.2 g/dl (14.0-17.9); LYMPHOCYTES # (AUTO) 1.4 X10'3 (1.1-4.8); LYMPHOCYTES % (AUTO) 11.3 % (21-51); MEAN CORPUSCULAR HGB CONC 33.5 g/dL (33.0-36.5); MEAN CORPUSCULAR VOLUME 89.7 FL (78-98); MEAN PLATELET VOLUME 7.9 FL (7.4-10.4); MONOCYTES # (AUTO) 1.1 X10'3 (0-0.9); MONOCYTES % (AUTO) 9.3 % (2-12); NEUTROPHILS # (AUTO) 9.4 X10'3 (1.8-7.7); NEUTROPHILS % (AUTO) 76.5 % (42-75); PLATELET COUNT 311 X10'3 (140-440); RED BLOOD COUNT 5.07 X10'6 (4.70-6.10); RED CELL DISTRIBUTION WIDTH 13.6 % (11.5-14.5); WHITE BLOOD COUNT 12.3 X10'3 (4.5-11.0)
[2021-04-27 09:11] LABS: ALANINE AMINOTRANSFERASE 100 U/L (12-78); ALBUMIN 4.1 G/DL (3.4-5.0); ALKALINE PHOSPHATASE 102 IU/L (46-116); ANION GAP 10 (8-16); ASPARTATE AMINO TRANSFERASE 362 U/L (10-37); BILIRUBIN,TOTAL 0.9 MG/DL (0.1-1.0); BLOOD UREA NITROGEN 21 MG/DL (7-18); BUN/CREATININE RATIO 18.3 (5.4-32.0); CALCIUM 9.5 MG/DL (8.5-10.1); CHLORIDE 100 MMOL/L (99-107); CREATININE 1.15 MG/DL (0.60-1.10); GLUCOSE 84 MG/DL (70-104); POTASSIUM 4.1 MMOL/L (3.5-5.1); SODIUM 136 MMOL/L (135-145); TOTAL CARBON DIOXIDE 25.6 MMOL/L (24-32); TOTAL PROTEIN 8.4 G/DL (6.4-8.2); eGFR 71 ML/MIN
[2021-04-27 09:42] LABS: PLATELET ESTIMATE NORMAL; TOTAL CELLS COUNTED 100
[2021-04-27] MEDS ORDERED: SULF1TAB49 PO (09:44)
== END 2021-04-27 10:08 | disposition home or self-care (01) ==
LOC: ER 07:53
DX: M25.572 Pain in left ankle and joints of left foot (principal); F41.9 Anxiety disorder, unspecified; G43.909 Migraine, unspecified, not intractable, without status migrainosus; J45.909 Unspecified asthma, uncomplicated; K21.9 Gastro-esophageal reflux disease without esophagitis; G89.29 Other chronic pain; F31.9 Bipolar disorder, unspecified; F17.200 Nicotine dependence, unspecified, uncomplicated; F12.90 Cannabis use, unspecified, uncomplicated; F15.90 Other stimulant use, unspecified, uncomplicated; F14.90 Cocaine use, unspecified, uncomplicated; F11.90 Opioid use, unspecified, uncomplicated; Z87.440 Personal history of urinary (tract) infections; Z86.19 Personal history of other infectious and parasitic diseases; Z86.14 Personal history of Methicillin resistant Staphylococcus aureus infection; Z90.89 Acquired absence of other organs; Z98.890 Other specified postprocedural states; Z72.89 Other problems related to lifestyle; Z88.0 Allergy status to penicillin; Z79.2 Long term (current) use of antibiotics; Z79.899 Other long term (current) drug therapy
CPT/HCPCS: 36415; 73610; 73630; 80053; 85007; 85025; 96372; 99284; J1885

== ENCOUNTER 2021-05-24 10:48 | Outpatient (CLI) | payer MEDICAID | END 2021-05-24 23:59 | disposition home or self-care (01) | LOC: RAD 10:48 | PROVIDERS: ATTEND General Practice | DX: R00.8 Other abnormalities of heart beat (principal); F11.20 Opioid dependence, uncomplicated | CPT/HCPCS: 93005 ==

== ENCOUNTER 2021-06-16 05:15 | Emergency (ER) | payer MEDICAID ==
[~2021-06-16] VITALS: Ht 170.2 cm; Wt 88.6 kg
[2021-06-16 05:30] VITALS: BP 136/95
[2021-06-16] MEDS ORDERED: OLANZapine 2.5MG tablet PO SCH (06:05)
[2021-06-16] MEDS: LORazepam 1 MG tablet PO ONE (06:11)
[2021-06-16] MEDS: OLANZAPINE 5 MG TABLET PO ONE (06:15)
[2021-06-16] MEDS ORDERED: OLAN5TAB3 PO (06:16)
[2021-06-16] MEDS ORDERED: OLAN10TA3 PO (06:16)
[2021-06-16] MEDS: OLANZapine 2.5MG tablet PO SCH (06:17)
== END 2021-06-16 06:23 | disposition home or self-care (01) ==
LOC: ER 05:15
DX: F41.9 Anxiety disorder, unspecified (principal); G43.909 Migraine, unspecified, not intractable, without status migrainosus; J45.909 Unspecified asthma, uncomplicated; K21.9 Gastro-esophageal reflux disease without esophagitis; G89.29 Other chronic pain; F31.9 Bipolar disorder, unspecified; F12.90 Cannabis use, unspecified, uncomplicated; F15.90 Other stimulant use, unspecified, uncomplicated; F11.90 Opioid use, unspecified, uncomplicated; Z76.0 Encounter for issue of repeat prescription; Z86.19 Personal history of other infectious and parasitic diseases; Z87.440 Personal history of urinary (tract) infections; Z86.14 Personal history of Methicillin resistant Staphylococcus aureus infection; Z90.89 Acquired absence of other organs; Z98.890 Other specified postprocedural states; Z72.89 Other problems related to lifestyle; Z88.0 Allergy status to penicillin; Z79.899 Other long term (current) drug therapy
CPT/HCPCS: 99283

== ENCOUNTER 2021-07-22 12:02 | Emergency (ER) | payer MEDICAID ==
[~2021-07-22] VITALS: Ht 167.6 cm; Wt 82.1 kg
[~2021-07-22 12:02] MED LIST changes: +OLAN10TA3 PO
[2021-07-22 13:04] LABS: BASOPHILS % (AUTO) 0.5 % (0-1); EOSINOPHILS # (AUTO) 0.2 X10'3 (0-0.9); HEMATOCRIT 49.5 % (42.0-52.0); HEMOGLOBIN 16.3 g/dl (14.0-17.9); LYMPHOCYTES # (AUTO) 1.9 X10'3 (1.1-4.8); MEAN CORPUSCULAR HEMOGLOBIN 28.8 PG (27.0-31.0); MEAN CORPUSCULAR HGB CONC 32.9 g/dL (33.0-36.5); MEAN CORPUSCULAR VOLUME 87.4 FL (78-98); MEAN PLATELET VOLUME 7.7 FL (7.4-10.4); MONOCYTES # (AUTO) 0.5 X10'3 (0-0.9); MONOCYTES % (AUTO) 6.7 % (2-12); NEUTROPHILS # (AUTO) 5.3 X10'3 (1.8-7.7); NEUTROPHILS % (AUTO) 65.8 % (42-75); PLATELET COUNT 335 X10'3 (140-440); RED BLOOD COUNT 5.66 X10'6 (4.70-6.10); RED CELL DISTRIBUTION WIDTH 12.5 % (11.5-14.5); WHITE BLOOD COUNT 8.1 X10'3 (4.5-11.0)
[2021-07-22 13:17] LABS: ALANINE AMINOTRANSFERASE 43 U/L (12-78); ALBUMIN 4.1 G/DL (3.4-5.0); ALBUMIN/GLOBULIN RATIO 0.9 (1.1-1.5); ALKALINE PHOSPHATASE 103 IU/L (46-116); ANION GAP 11 (8-16); ASPARTATE AMINO TRANSFERASE 39 U/L (10-37); BILIRUBIN,TOTAL 0.4 MG/DL (0.1-1.0); BLOOD UREA NITROGEN 17 MG/DL (7-18); BUN/CREATININE RATIO 13.4 (5.4-32.0); CALCIUM 9.2 MG/DL (8.5-10.1); CHLORIDE 102 MMOL/L (99-107); CREATININE 1.27 MG/DL (0.60-1.10); GLUCOSE 118 MG/DL (70-104); SODIUM 140 MMOL/L (135-145); TOTAL CARBON DIOXIDE 26.7 MMOL/L (24-32); TOTAL PROTEIN 8.8 G/DL (6.4-8.2); eGFR 63 ML/MIN
[2021-07-22 15:38] LABS: D-DIMER 0.23 MG/L FEU (0-0.50)
[2021-07-22] MEDS ORDERED: LORazepam 1 MG tablet PO ONE (15:40)
[2021-07-22] MEDS ORDERED: NICO-631 TD (16:42)
[2021-07-22 17:02] VITALS: BP 124/88
== END 2021-07-22 17:06 | disposition home or self-care (01) ==
LOC: ER 12:03
DX: R07.9 Chest pain, unspecified (principal); U09.9 Post COVID-19 condition, unspecified; K21.9 Gastro-esophageal reflux disease without esophagitis; G89.29 Other chronic pain; M54.9 Dorsalgia, unspecified; G43.909 Migraine, unspecified, not intractable, without status migrainosus; F32.9 Major depressive disorder, single episode, unspecified; Z88.0 Allergy status to penicillin; Z79.899 Other long term (current) drug therapy
CPT/HCPCS: 36415; 71045; 80053; 83880; 84484; 85025; 85379; 93005; 99285

== ENCOUNTER 2022-09-06 08:12 | Emergency (ER) | payer MEDICAID ==
[~2022-09-06] VITALS: Ht 167.6 cm; Wt 72.7 kg
[~2022-09-06 08:12] MED LIST changes: -CARI-433 PO; +CARI-515 PO; -MAGN296S70 PO; +MAGN296S89 PO; -ORPH100T2 PO; +ORPH100T4 PO
[2022-09-06] MEDS ORDERED: normal saline 1000ML IV soln IV ONE (08:50)
[2022-09-06] MEDS ORDERED: acetaminophen 325mg tablet PO ONE (08:50)
[2022-09-06] MEDS ORDERED: thiamine 100mg/ml 2ml inj. IV ONE (08:50)
[2022-09-06] MEDS ORDERED: metoclopramide 5 mg/ml inj IV ONE (08:50)
[2022-09-06] MEDS ORDERED: LORazepam 2 mg/ml vial IV ONE (08:50)
[2022-09-06] MEDS ORDERED: mag hydrox/Alum hydrox/simeth 30ml oral suspension PO ONE (08:50)
[2022-09-06] MEDS ORDERED: sucralfate 1 gm tablet PO ONE (08:50)
[2022-09-06] MEDS ORDERED: LIDOcaine Viscous 15ml cup MM ONE (08:50)
[2022-09-06] MEDS ORDERED: folic acid 1mg/0.2ml inj IV ONE (08:50)
[2022-09-06] MEDS ORDERED: famotidine/PF 10 mg/ml inj IV ONE (08:50)
[2022-09-06 08:54] LABS: CLARITY,URINE CLEAR (Clear); COLOR,URINE STRAW (Yellow); GLUCOSE, URINE NEGATIVE (Neg); KETONES,URINE NEGATIVE (Neg); LEUKOCYTE ESTERASE ,URINE NEGATIVE (Neg); NITRITES, URINE NEGATIVE (Neg); OCCULT BLOOD,URINE NEGATIVE (Neg); PROTEIN,URINE NEGATIVE (Neg); UROBILINOGEN,URINE 0.2 E.U/dL (0.2-1.0)
[2022-09-06 08:58] LABS: UA COLLECTION TYPE CLN CATCH MIDSTREAM
[2022-09-06 09:03] LABS: BASOPHILS % (AUTO) 0.4 % (0-1); EOSINOPHILS # (AUTO) 0.4 X10'3 (0-0.9); EOSINOPHILS % (AUTO) 4.6 % (0-6); HEMATOCRIT 47.5 % (42.0-52.0); HEMOGLOBIN 15.9 g/dl (14.0-17.9); LYMPHOCYTES # (AUTO) 2.5 X10'3 (1.1-4.8); LYMPHOCYTES % (AUTO) 26.4 % (21-51); MEAN CORPUSCULAR HEMOGLOBIN 30.2 PG (27.0-31.0); MEAN CORPUSCULAR HGB CONC 33.4 g/dL (33.0-36.5); MEAN CORPUSCULAR VOLUME 90.4 FL (78-98); MEAN PLATELET VOLUME 7.9 FL (7.4-10.4); MONOCYTES # (AUTO) 0.7 X10'3 (0-0.9); MONOCYTES % (AUTO) 7.3 % (2-12); NEUTROPHILS # (AUTO) 5.9 X10'3 (1.8-7.7); NEUTROPHILS % (AUTO) 61.3 % (42-75); PLATELET COUNT 388 X10'3 (140-440); RED BLOOD COUNT 5.25 X10'6 (4.70-6.10); RED CELL DISTRIBUTION WIDTH 13.1 % (11.5-14.5); WHITE BLOOD COUNT 9.6 X10'3 (4.5-11.0)
[2022-09-06 09:19] LABS: ALANINE AMINOTRANSFERASE 16 U/L (12-78); ALBUMIN 4.1 G/DL (3.4-5.0); ALBUMIN/GLOBULIN RATIO 1.1 (1.1-1.5); ALKALINE PHOSPHATASE 95 IU/L (46-116); AMYLASE 87 U/L (25-115); ANION GAP 5 (8-16); ASPARTATE AMINO TRANSFERASE 23 U/L (10-37); BILIRUBIN,TOTAL 0.4 MG/DL (0.1-1.0); BLOOD UREA NITROGEN 17 MG/DL (7-18); BUN/CREATININE RATIO 16.5 (10.0-20.0); CALCIUM 9.1 MG/DL (8.5-10.1); CHLORIDE 99 MMOL/L (99-107); CREATININE 1.03 MG/DL (0.60-1.10); GLUCOSE 83 MG/DL (70-104); LIPASE 66 U/L (73-393); POTASSIUM 3.6 MMOL/L (3.5-5.1); SODIUM 135 MMOL/L (135-145); TOTAL CARBON DIOXIDE 30.9 MMOL/L (24-32); eGFR 80 ML/MIN
[2022-09-06 09:26] LABS: ETHANOL < 0.010 GM/DL (0.0-0.010)
[2022-09-06 09:34] VITALS: BP 135/82
--- NOTE | 2022-09-06 10:09 | NUR ---
Met with patient in regards to alcohol use and to see if patient was interested in resources for treatment options. Patient is interested in resources for outpatient services. Patient said he has lots of support. I gave patient a list of out patient facilites, talked about getting a sponsor, going to meetings and I talked to him about medication to help with cravings. Patient has my card to call me with any questions.
[2022-09-06] MEDS ORDERED: SUCR1TAB34 PO (10:10)
[2022-09-06] MEDS ORDERED: LORA-269 PO (10:10)
[2022-09-06] MEDS ORDERED: ONDA4TAB12 PO (10:10)
[2022-09-06] MEDS ORDERED: PANT-47 PO (10:10)
== END 2022-09-06 12:13 | disposition home or self-care (01) ==
LOC: ER 08:13
DX: K29.20 Alcoholic gastritis without bleeding (principal); F10.20 Alcohol dependence, uncomplicated; G43.909 Migraine, unspecified, not intractable, without status migrainosus; J45.909 Unspecified asthma, uncomplicated; K21.9 Gastro-esophageal reflux disease without esophagitis; G89.29 Other chronic pain; F41.9 Anxiety disorder, unspecified; F31.9 Bipolar disorder, unspecified; F12.90 Cannabis use, unspecified, uncomplicated; F15.90 Other stimulant use, unspecified, uncomplicated; F11.90 Opioid use, unspecified, uncomplicated; F14.90 Cocaine use, unspecified, uncomplicated; Z72.89 Other problems related to lifestyle; Z90.49 Acquired absence of other specified parts of digestive tract; Z98.890 Other specified postprocedural states; Z79.899 Other long term (current) drug therapy; Y90.0 Blood alcohol level of less than 20 mg/100 ml
CPT/HCPCS: 36415; 80053; 80320; 81003; 82150; 83690; 85025; 93005; 96361; 96374; 96375; 99284; J2060; J2765; J3411; J3490; J7030

== ENCOUNTER 2022-11-14 06:40 | Emergency (ER) | payer MEDICAID ==
[~2022-11-14] VITALS: Ht 167.6 cm; Wt 63.6 kg
[~2022-11-14 06:40] MED LIST changes: +CHLO25CA10 PO; +ONDA4TAB12 PO; +PANT-47 PO; +SUCR1TAB34 PO
[2022-11-14 07:00] VITALS: BP 138/98; PULSE 87; RESP 20; TEMP 97.1; O2SAT 100
[2022-11-14] MEDS ORDERED: ondansetron 4mg rapidly disintigrating tab PO ONE (07:00)
[2022-11-14] MEDS ORDERED: LORazepam 1 MG tablet PO ONE (07:40)
== END 2022-11-14 08:01 | disposition home or self-care (01) ==
LOC: ER 06:41
DX: R11.2 Nausea with vomiting, unspecified (principal); F41.9 Anxiety disorder, unspecified; G43.909 Migraine, unspecified, not intractable, without status migrainosus; K21.9 Gastro-esophageal reflux disease without esophagitis; F31.9 Bipolar disorder, unspecified; G89.29 Other chronic pain; M54.9 Dorsalgia, unspecified; F12.10 Cannabis abuse, uncomplicated; F15.10 Other stimulant abuse, uncomplicated; F11.10 Opioid abuse, uncomplicated; Z79.899 Other long term (current) drug therapy; Z79.1 Long term (current) use of non-steroidal anti-inflammatories (NSAID); Z79.2 Long term (current) use of antibiotics
CPT/HCPCS: 99283

== ENCOUNTER 2025-02-12 15:35 | Emergency (ER) | payer MEDICAID ==
[~2025-02-12] VITALS: Ht 167.6 cm; Wt 79.9 kg
[~2025-02-12 15:35] MED LIST changes: -ALPR1TAB2 PO; -AMPH10CA3 PO; -BISA-155 PO; +BUSP5TAB26 PO; -CARI-515 PO; -CHLO25CA10 PO; -CLON-527 PO; -DIVA-52 PO; -DIVA-74 PO; -DULO20CA18 PO; -KETO10TA2 PO; -LORA-269 PO; -MAGN296S89 PO; -OLAN10TA3 PO; -OLAN5TAB3 PO; -ONDA4TAB12 PO; -ORPH100T4 PO; -PALI3TAB PO; -PANT-47 PO; -QUET25TA PO; +SERT-433 PO; -SUCR1TAB34 PO; +TRAZ-251 PO
[2025-02-12 15:38] VITALS: BP 140/87; PULSE 81; TEMP 98.8; O2SAT 100
[2025-02-12 16:05] LABS: MEAN PLATELET VOLUME 7.7 FL (7.4-10.4); RED CELL DISTRIBUTION WIDTH 13.3 % (11.5-14.5)
[2025-02-12 16:29] LABS: CREATININE 0.81 MG/DL (0.60-1.10); TOTAL CARBON DIOXIDE 33.9 MMOL/L (24-32); eCRCL 107 ML/MIN; eGFR > 90 ML/MIN
[2025-02-12] MEDS: ketorolac trometh 30MG/ML vial 30 MG/ML VIAL IM ONE (17:56)
[2025-02-12 17:59] VITALS: RESP 16
--- NOTE | 2025-02-12 18:21 | Physician Documentation ---
History of Present Illness ~ Chief Complaint: ETOH Stated Complaint: MIGRAINE Time Seen by MD: 17:39 Primary Medical Doctor: sarah [facility] Patient is a pleasant 44-year-old male that presents to the emergency department for evaluation of a clearance to attend the respite for alcohol withdrawal and treatment program. Reports that he last drank several days ago has no obvious signs of withdrawal right now other than a little bit of anxiety patient reports that he has already undergone a course of Librium successfully but he does have some residual anxiety although mild. Patient reports a headache at this time with no associated trauma. Patient denies any other symptoms at this time. Tetanus within 5 years?: No Medication Reconciliation Allergies: Coded Allergies: No Known Allergies (Unverified , 02/12/25) Scheduled Buspirone Hcl (Buspirone Hcl), 7.5 MG PO BID Nicotine 21 MG Patch* (Habitrol 21 MG Patch*), 1 PATCH TD DAILY Olanzapine (Olanzapine), 10 MG PO HS Sertraline HCl (Sertraline HCl), 50 MG PO DAILY Scheduled PRN Trazodone HCl (Trazodone HCl), 50 MG PO HSMR1 PRN for sleep Past Medical History Past Medical History: Migraine, Sinusitis, Asthma, GERD, Hepatitis C, UTI, Chronic Back Pain, Cellulitis, MRSA Abscess, Anxiety, Bipolar, Depression, Panic Disorder Past Surgical History: appendectomy, other Other Past Surgical History: rhinoplasty, septoplasty, double mastectomy Patient History: FH: Alzheimers disease MOTHER GRANDFATHER OR GRANDMOTHER, Onset:Unknown FH: bipolar disorder MOTHER, Onset:Unknown GRANDFATHER OR GRANDMOTHER FH: schizophrenia MOTHER, Onset:Unknown FH: schizophrenia MOTHER, Onset:Unknown Alcohol Use: Occasionally Drug Use: marijuana, methamphetamine, cocaine, heroin Lives In: Home Occupation: employed Review of Systems ROS As stated above in the HPI, otherwise all systems are reviewed and negative. Physical Exam Vital Signs: Temperature: 98.8, Source: Temporal, Heart Rate: 81, Respiratory Rate: 16, BP: 140/87, Pulse Oximetry: 100, Weight: 79.900 Oxygen Flow Rate: 0 Physical Exam VITALS: Reviewed and as above. GENERAL: Alert, no apparent distress. HEENT: Normocephalic, atraumatic, PERRL, EOMI, dry mucosa, no erythema RESPIRATORY: Lungs clear, normal breath sounds, no respiratory distress. CHEST: No accessory muscle use, no retractions CV: Regular rate, rhythm, no edema, no murmur, No: JVD GI: Soft, non-tender, bowels sounds present, no rebound, guarding, or rigidity BACK: No CVA tenderness, or swelling MUSCULOSKELETAL No deformities, no edema SKIN: Warm and dry, no rash NEURO: Oriented x4, No motor or sensory deficit PSYCH: Normal mood and affect, no agitation Progress Results/Orders Results/Orders Completed Orders - JOSE ARMANDO FARRAR Ketorolac Trometh 30mg/Ml Vial (Toradol (02/12/25 17:40) Acetaminophen 325mg Tablet (Tylenol Tabl (02/12/25 17:40) Diazepam Tablet (Valium Tablet) (02/12/25 17:40) Medications Received in ER Medications (Trade) Dose Ordered Sig/Dianelys Route PRN Reason Start Time Stop Time Status Last Admin Dose Admin (Toradol inj. 30mg/ml) 30 mg ONCE ONCE IM 02/12/25 17:40 02/12/25 17:41 DC 02/12/25 17:56 30 MG (Tylenol tablet) 975 mg ONCE ONCE PO 02/12/25 17:40 02/12/25 17:41 DC 02/12/25 17:57 975 MG (Valium tablet) 5 mg ONCE ONCE PO 02/12/25 17:40 02/12/25 17:41 DC 02/12/25 17:57 5 MG Vital Signs 02/12/25 02/12/25 02/12/25 02/12/25 15:38 17:56 17:57 17:59 Temp 98.8 Pulse 81 Resp 20 16 16 16 B/P (MAP) 140/87 Pulse Ox 100 O2 Flow Rate 0 Laboratory Tests Test 02/12/25 15:59 White Blood Count 7.6 Red Blood Count 4.39 L Hemoglobin 13.5 L Hematocrit 40.0 L Mean Corpuscular Volume 91.1 Mean Corpuscular Hemoglobin 30.7 Mean Corpuscular Hemoglobin Concent 33.7 Red Cell Distribution Width 13.3 Platelet Count 310 Mean Platelet Volume 7.7 Neutrophils (%) (Auto) 55.8 Lymphocytes (%) (Auto) 25.8 Monocytes (%) (Auto) 9.5 Eosinophils (%) (Auto) 8.4 H Basophils (%) (Auto) 0.5 Neutrophils # (Auto) 4.2 Lymphocytes # (Auto) 2.0 Monocytes # (Auto) 0.7 Eosinophils # (Auto) 0.6 Basophils # (Auto) 0.0 CBC Comment Sodium Level 142 Potassium Level 4.0 Chloride Level 107 Carbon Dioxide Level 33.9 H Anion Gap 1 L Blood Urea Nitrogen 10 Creatinine 0.81 Estimated GFR/1.73 m2 > 90 BUN/Creatinine Ratio 12.3 Glucose Level 93 Calcium Level 8.3 L Total Bilirubin 0.2 Aspartate Amino Transf (AST/SGOT) 34 Alanine Aminotransferase (ALT/SGPT) 30 Alkaline Phosphatase 101 Total Protein 7.0 Albumin 3.1 L Globulin 3.9 Albumin/Globulin Ratio 0.8 L Amylase Level 56 Lipase 28 Chemistry Comments Medical Decision Making Additional information obtaine: other Findings 44-year-old male presented to the ED for medical clearance prior to attending an alcohol rehabilitation program. He reports last alcohol use several days ago, with no current withdrawal symptoms except mild residual anxiety. He also reports a non-traumatic headache. Assessment: Patient is not currently intoxicated and has no evidence of moderate or severe withdrawal (no tremor, diaphoresis, tachycardia, hallucinations, or delirium). No history of complicated withdrawal (seizures, delirium tremens). No significant medical or psychiatric comorbidities identified that would complicate withdrawal management. Headache is non-traumatic, mild, and responded to ketorolac and ibuprofen in the ED. Mild residual anxiety managed with a single 5 mg dose of diazepam in the ED. Medical Decision-Making: Patient meets criteria for discharge to ambulatory alcohol withdrawal management and residential rehabilitation, as per ASAM guidelines: mild withdrawal, not intoxicated, no complicating factors, and able to comply with therapy. Short-term prescription for diazepam 5 mg for a few days is appropriate to assist with residual anxiety and prevent withdrawal recurrence during transition, consistent with guideline recommendations. No acute medical issues requiring inpatient management. Patient referred to residential rehabilitation program for ongoing care, which is associated with improved outcomes and reduced readmission rates.[3] Supplemental thiamine should be considered as part of ongoing management for alcohol use disorder.[2] Disposition: Discharged in stable condition to residential rehabilitation program. Prescribed diazepam 5 mg PO, short course for anxiety/withdrawal prevention. Advised to follow up with addiction medicine and primary care as scheduled. Provided education on withdrawal symptoms and when to seek emergency care. Clinical rationale and evidence: Discharge is supported by ASAM and Society for Academic Emergency [employer] kraig [id number] for mild, controlled withdrawal and safe ambulatory management. Short-term benzodiazepine prescription is recommended for controlled withdrawal at discharge. Residential program referral improves abstinence and reduces readmission. Differential Dx:Considerations: Include: Intoxication-Alcohol, Intoxication- Other drug, Personality disorder, Substance abuse disorder, Acute delirium, Closed head injury, Cervical spine injury, Skull fracture, Fracture(s), Abrasion, Contusion, Foreign body, Hematoma, Laceration, Alcohol withdrawl syndrom, Encephalopathy, Hepatitis, Medically stable, Other Departure Disposition: 01 HOME / SELF CARE / HOMELESS Impression: Primary Impression: Alcohol withdrawal syndrome Additional Impression: General medical examination Condition: Stable Discharge Instructions: Alcohol Withdrawal Syndrome, Hooh-my-Nupm Additional Instructions: This 44-year-old male is being discharged after ED evaluation for medical mahnaz arance to attend an alcohol rehabilitation program. He last consumed alcohol several days ago, is not currently experiencing withdrawal symptoms, and has mild residual anxiety and a non-traumatic headache. In the ED, he was treated with ketorolac, ibuprofen, and 5 mg diazepam, and will receive a short course of diazepam for residual anxiety. Alcohol Withdrawal and Rehabilitation: The patient is medically cleared for ambulatory alcohol rehabilitation with no current withdrawal symptoms and low risk for severe withdrawal. He should be monitored for new or worsening withdrawal symptoms such as tremor, agitation, confusion, hallucinations, or seizures. If these occur, he should seek emergency care immediately. Diazepam Instructions: Diazepam 5 mg is prescribed for a short course as directed. Warn about risks of sedation, dependence, and withdrawal; abrupt discontinuation should be avoided, and a gradual taper may be needed if symptoms persist. Strictly avoid alcohol and other AUTHORIZATION REPRESENTATIVE depressants while taking diazepam due to increased risk of respiratory depression, overdose, and impaired coordination. Do not drive or operate machinery while taking diazepam. Headache Management: The headache was treated with NSAIDs and is non-traumatic. Use ibuprofen/ketorolac only as directed and monitor for gastrointestinal or renal side effects. No significant drug-drug interactions are expected with short-term use in this context, but caution is advised if other medications are added. Safety and Follow-Up: Daily monitoring for withdrawal symptoms is recommended for up to five days after last alcohol use. Engage with the rehabilitation program and ensure close follow-up with addiction medicine or primary care.Consider thiamine supplementation (100 mg orally daily for 35 days) to prevent Wernickes encephalopathy. Summary: The patient is safe for discharge to rehabilitation with a short diazepam cour se, NSAID headache management, and clear instructions on monitoring, medication safety, and follow-up. Would you like me to review the evidence and recommendations regarding the optimal duration and tapering strategy for short-term diazepam use in patients with mild residual anxiety during alcohol rehabilitation, to ensure safe discontinuation and minimize the risk of benzodiazepine dependence? Referrals: NO PRIMARY CARE PROVIDER (PCP) Prescriptions Ibuprofen* (Motrin*) 400 Mg Tablet 800 MG PO Q12H for 30 Days, #60 TAB Use as needed for pain Prov: JOSE ARMANDO FARRAR 02/12/25 Diazepam (Valium) 5 Mg Tablet 1 TAB PO Q12H PRN PRN for anxiety for 10 Days, #20 TAB 0 Refills Prov: JOSE ARMANDO FARRAR 02/12/25 Education Educated: Patient Educated regarding: diagnosis, treatment, need for follow up Signature Scribe Signature: A Attestation: Scribed for Jose Armando Farrar by STEVE Rangel . 02/12/25 18:28 JOSE ARMANDO FARRAR Feb 12, 2025 18:21
[2025-02-12] MEDS ORDERED: ACET-1008 PO (18:26)
[2025-02-12] MEDS ORDERED: DIAZ5TAB PO (18:26)
[2025-02-12] MEDS ORDERED: IBUP-1984 PO (18:28)
== END 2025-02-12 18:40 | disposition home or self-care (01) ==
LOC: ER 15:36
DX: F10.239 Alcohol dependence with withdrawal, unspecified (principal); F31.9 Bipolar disorder, unspecified; J45.909 Unspecified asthma, uncomplicated; G43.909 Migraine, unspecified, not intractable, without status migrainosus; K21.9 Gastro-esophageal reflux disease without esophagitis; F41.9 Anxiety disorder, unspecified; F12.90 Cannabis use, unspecified, uncomplicated; F15.90 Other stimulant use, unspecified, uncomplicated; F11.90 Opioid use, unspecified, uncomplicated; F14.90 Cocaine use, unspecified, uncomplicated; Z00.00 Encounter for general adult medical examination without abnormal findings; Z90.13 Acquired absence of bilateral breasts and nipples; Z90.49 Acquired absence of other specified parts of digestive tract; Y90.9 Presence of alcohol in blood, level not specified
CPT/HCPCS: 36415; 80053; 82150; 83690; 85025; 96372; 99283; J1885

== ENCOUNTER 2025-03-22 09:15 | Emergency (ER) | payer MEDICAID ==
[~2025-03-22] VITALS: Ht 165.1 cm; Wt 83.6 kg
[~2025-03-22 09:15] MED LIST changes: +ACET-1008 PO; +DIAZ5TAB PO
[2025-03-22 09:17] VITALS: TEMP 98.4
--- NOTE | 2025-03-22 10:41 | Physician Documentation ---
History of Present Illness ~ Chief Complaint: See Chief Complaint Stated Complaint: REACTION TO A SHOT Time Seen by MD: 10:41 Primary Medical Doctor: [facility] This is a 44-year-old male with a history of substance use disorder. He reports that he had been on suboxone x2 months, and was recently given his 1st dose of subloccade IM. Several days, he has felt unwell. He reports that he is having body aches, cough, insomnia. He also notes a history of an anxiety disorder. Has been given lorazepam in the past, does not have a current prescription. Does feel that he had a fever a couple days ago. He questions if this is the injection versus a viral syndrome. Medication Reconciliation Allergies: Coded Allergies: No Known Allergies (Unverified , 03/22/25) Scheduled Acetaminophen (Tylenol), 650 MG PO Q6H PRN TEMPERATURE, (Reported) Buspirone Hcl (Buspirone Hcl), 7.5 MG PO BID Hydroxyzine Hcl* (Atarax*), 1 TAB PO Q8H Nicotine 21 MG Patch* (Habitrol 21 MG Patch*), 1 PATCH TD DAILY Olanzapine (Olanzapine), 10 MG PO HS Ondansetron 8mg ODT (Ondansetron Odt), 1 TAB PO Q8H Sertraline HCl (Sertraline HCl), 50 MG PO DAILY Scheduled PRN Diazepam (Valium), 1 TAB PO Q12H PRN PRN for anxiety Trazodone HCl (Trazodone HCl), 50 MG PO HSMR1 PRN for sleep Discontinued Medications Ibuprofen* (Motrin*), 800 MG PO Q12H Discontinued Reason: Auto Discontinued Past Medical History Past Medical History: Migraine, Sinusitis, Asthma, GERD, Hepatitis C, UTI, Chronic Back Pain, Cellulitis, MRSA Abscess, Anxiety, Bipolar, Depression, Panic Disorder Past Surgical History: appendectomy, other Other Past Surgical History: rhinoplasty, septoplasty, double mastectomy Patient History: FH: Alzheimers disease MOTHER GRANDFATHER OR GRANDMOTHER, Onset:Unknown FH: bipolar disorder MOTHER, Onset:Unknown GRANDFATHER OR GRANDMOTHER FH: schizophrenia MOTHER, Onset:Unknown FH: schizophrenia MOTHER, Onset:Unknown Alcohol Use: Occasionally Drug Use: marijuana, methamphetamine, cocaine, heroin Lives In: Home Occupation: employed Physical Exam Vital Signs: Temperature: 98.4, Source: Temporal, Heart Rate: 91, Respiratory Rate: 16, BP: 146/96, Pulse Oximetry: 99, Weight: 83.600 Oxygen Flow Rate: 0 Physical Exam General: Alert, no apparent distress. HEENT: PERRL, EOMI, no injection, moist mucous membranes. Neck: Full range of motion. Respiratory: Lungs clear, no respiratory distress. Chest: No accessory muscle use. Cardiovascular: Regular rate and rhythm, no murmurs. Gastrointestinal: Soft, nontender, nondistended. Bowels sounds present. Extremities: Normal range of motion, no deformity. Neurologic: Oriented x4. Psychiatric: Normal mood and affect. Skin: Normal color, warm and dry. No edema, no ecchymosis. Progress Results/Orders Results/Orders Orders - MONA SALAZAR NP Lorazepam Tablet (Ativan Tablet) (03/22/25 10:55) Completed Orders - MONA SALAZAR NP Ondansetron Disint. Tablet (Zofran Odt T (03/22/25 10:45) Hydroxyzine Tablet (Atarax Tablet) (03/22/25 10:45) Medications Received in ER Medications (Trade) Dose Ordered Sig/Dianelys Route PRN Reason Start Time Stop Time Status Last Admin Dose Admin (Zofran ODT tablet) 4 mg ONCE ONCE PO 03/22/25 10:45 03/22/25 10:46 DC 03/22/25 10:48 4 MG (Atarax tablet) 25 mg ONCE ONCE PO 03/22/25 10:45 03/22/25 10:46 DC 03/22/25 10:48 25 MG Vital Signs 03/22/25 09:17 Temp 98.4 Pulse 91 Resp 16 B/P (MAP) 146/96 Pulse Ox 99 O2 Flow Rate 0 Medical Decision Making Additional information obtaine: old records Findings 02/12/25 was seen here for ETOH w/d. Differential Dx:Considerations: Include: Anaphylaxis, Angioedema, Bronchospasm, Contact dermatitis, Drug reaction, Hypotension, Latex allergy, Renal failure, Respiratory failure, Shock, Urticaria Differential Diagnosis Possible subloccade reaction versus viral syndrome. Departure Time of Disposition: 10:52 Disposition: 01 HOME / SELF CARE / HOMELESS Impression: Primary Impression: Anxiety attack Additional Impression: Viral syndrome Discharge Instructions: Viral Illness, Adult Additional Instructions: Use the hydroxyzine and ondansetron as needed for symptoms. Rest, and drink plenty of fluids. Okay to use both [id number] Tylenol and ibuprofen per ID label instructions. Take care to not exceed these instructions. Please follow-up with your primary care on the , as you report that you already have an appointment for that day. Please return if worse. Referrals: NO PRIMARY CARE PROVIDER (PCP) Prescriptions Hydroxyzine Hcl* (Atarax*) 25 Mg Tablet 1 TAB PO Q8H for anxiety for 10 Days, #30 TAB Prov: MONA SALAZAR NP 03/22/25 Ondansetron 8mg ODT (Ondansetron Odt) 8 Mg Tab.rapdis 1 TAB PO Q8H for nausea/vomiting for 2 Days, #6 TAB 0 Refills Prov: MONA SALAZAR NP 03/22/25 Education Educated: Patient Educated regarding: diagnosis, treatment, prognosis, need for follow up Signature Scribe Signature: x Attestation: The note accurately reflects work and decisions made by me.Mona Bach NP 03/22/25 10:55 MONA SALAZAR NP Mar 22, 2025 10:41
[2025-03-22] MEDS: ondansetron 4mg rapidly disintigrating tab PO ONE (10:48)
[2025-03-22] MEDS ORDERED: ONDA-245 PO (10:53)
[2025-03-22] MEDS ORDERED: HYDR-3686 PO (10:53)
[2025-03-22 11:31] VITALS: BP 127/84; PULSE 64; RESP 17; O2SAT 98
== END 2025-03-22 11:33 | disposition home or self-care (01) ==
LOC: ER 09:16
DX: F41.9 Anxiety disorder, unspecified (principal); B34.9 Viral infection, unspecified; F31.9 Bipolar disorder, unspecified; K21.9 Gastro-esophageal reflux disease without esophagitis; G43.909 Migraine, unspecified, not intractable, without status migrainosus; J45.909 Unspecified asthma, uncomplicated; F12.90 Cannabis use, unspecified, uncomplicated; F11.90 Opioid use, unspecified, uncomplicated; F15.90 Other stimulant use, unspecified, uncomplicated; F14.90 Cocaine use, unspecified, uncomplicated; Z90.13 Acquired absence of bilateral breasts and nipples; Z90.49 Acquired absence of other specified parts of digestive tract
CPT/HCPCS: 99284; Q0177